=== PATIENT | male | born 1980 | race Caucasian/White ===

== ENCOUNTER 2016-11-04 15:56 | Emergency (ER) | payer OTHER ==
[~2016-11-04] VITALS: Ht 175.3 cm; Wt 66.0 kg
[~2016-11-04 15:56] MED LIST: Chlordiazepoxide Hcl PO; FLUO20CA33 PO; QUET300T2 PO; TRAZ-132 PO
[2016-11-04] MEDS ORDERED: ONDANSETRON HCL 4MG/2ML VIAL IV STA (17:08)
[2016-11-04] MEDS ORDERED: SODIUM CHLORIDE 0.9% 1,000 ML IV ONE (17:08)
[2016-11-04] MEDS ORDERED: MORPHINE SULFATE 4 MG/ML CPJ (NOT FOR IM USE) IV STA (17:08)
[2016-11-04] MEDS ORDERED: FAMOTIDINE 20MG/2ML VIAL IV STA (17:08)
[2016-11-04 17:31] LABS: BASOPHILS % 0.3 % (0.0-2.0); DIFFERENTIAL COMMENT 0; EOSINOPHILS % 0.4 % (0.0-5.0); HEMATOCRIT. 33.9 % (42.0-52.0); HEMOGLOBIN. 11.5 g/dL (14.0-18.0); MEAN CORPUSCULAR HEMOGLOBIN 34.1 pg (28.0-32.0); MEAN CORPUSCULAR HGB CONC 33.9 g/dL (31.0-37.0); MEAN CORPUSCULAR VOLUME 100.4 fL (80.0-94.0); MEAN PLATELET VOLUME 6.3 fl (7.4-10.4); MONOCYTES % 10.9 % (2.0-8.0); NEUTROPHILS % 75.4 % (40.0-76.0); PLATELET 221 x1000/uL (130-400); RED BLOOD CELL COUNT 3.38 mill/uL (4.7-6.1); RED CELL DISTRIBUTION WIDTH 14.9 % (11.6-14.6); WHITE BLOOD COUNT 6.7 x1000/uL (4.5-11.0)
[2016-11-04 17:37] LABS: CHLORIDE 93 mEq/L (98-107); PROTHROMBIN TIME 10.7 sec
[2016-11-04 17:39] LABS: INDEX HEMOLYSI 1 (1-3); INDEX ICTERIC 1 (1-4); INDEX LIPEMIC 1 (1-3)
[2016-11-04 17:43] LABS: ALANINE AMINOTRANSFERASE 115 IU/L (13-61); ALBUMIN 3.8 g/dL (3.4-5.0); ANION GAP 13; CARBON DIOXIDE 33 mEq/L (21-32); LIPASE 329 IU/L (73-393); UREA NITROGEN BLOOD 13 mg/dL (7-21); eGFR > 60 mL/min (>60)
[2016-11-04 17:44] LABS: ETHANOL BLOOD < 10 mg/dL
[2016-11-04 17:48] LABS: NT PRO B-TYPE NATRIURETIC PEP 13 pg/mL (5-125); TROPONIN I < 0.02 ng/mL (0.00-0.04)
[2016-11-04] MEDS ORDERED: POTASSIUM CHLORIDE 40MEQ/30ML UDC PO ONE (19:30)
[2016-11-04] MEDS ORDERED: MAGNESIUM/ALUMINUM HYDROXIDE/SIMETHICONE 30ML UDC PO ONE (19:30)
[2016-11-04 19:42] VITALS: BP 127/76
[2016-11-04] MEDS ORDERED: ONDANSETRON HCL 4MG/2ML VIAL IV ONE (19:45)
[2016-11-04] MEDS ORDERED: KETOROLAC 30MG/ML VIAL IV ONE (19:45)
[2016-11-04] MEDS ORDERED: MORPHINE SULFATE 4 MG/ML CPJ (NOT FOR IM USE) IV ONE (19:45)
[2016-11-04] MEDS ORDERED: POTASSIUM CHLORIDE 20MEQ TABLET SR PO NR (20:00)
== END 2016-11-04 20:18 | disposition home or self-care (01) ==
LOC: ER 16:35
DX: K29.70 Gastritis, unspecified, without bleeding (principal); S42.301A Unspecified fracture of shaft of humerus, right arm, initial encounter for closed fracture; R11.2 Nausea with vomiting, unspecified; F41.9 Anxiety disorder, unspecified; F32.9 Major depressive disorder, single episode, unspecified; F12.10 Cannabis abuse, uncomplicated; F17.200 Nicotine dependence, unspecified, uncomplicated; Z79.899 Other long term (current) drug therapy; X58.XXXA Exposure to other specified factors, initial encounter; Y93.89 Activity, other specified; Y99.8 Other external cause status; Y92.89 Other specified places as the place of occurrence of the external cause
CPT/HCPCS: 36415; 71010; 74176; 80053; 83605; 83690; 83880; 84484; 85025; 85610; 93005; 96361; 96374; 96375; 96376; 99285; G0482; J1885; J2270; J2405; J3490; A4565; J7030

== ENCOUNTER 2016-11-08 17:08 | Emergency (ER) | payer MEDICAID, OTHER ==
[~2016-11-08] VITALS: Ht 175.3 cm; Wt 63.5 kg
[2016-11-08 17:31] VITALS: BP 118/72
== END 2016-11-08 19:30 | disposition left against medical advice (07) ==
LOC: ER 18:51
DX: Z53.21 Procedure and treatment not carried out due to patient leaving prior to being seen by health care provider (principal)

== ENCOUNTER 2016-12-29 08:32 | Emergency (ER) | payer MEDICAID ==
[~2016-12-29] VITALS: Ht 175.3 cm; Wt 70.0 kg
[2016-12-29 09:42] VITALS: BP 136/82
== END 2016-12-29 17:37 | disposition left against medical advice (07) ==
LOC: ER 09:45
DX: Z53.21 Procedure and treatment not carried out due to patient leaving prior to being seen by health care provider (principal)

== ENCOUNTER 2017-01-01 16:36 | Emergency (ER) | payer MEDICAID ==
[~2017-01-01] VITALS: Ht 175.3 cm; Wt 80.0 kg
[2017-01-01 16:40] VITALS: BP 132/78
== END 2017-01-01 18:25 | disposition left against medical advice (07) ==
LOC: ER 16:38
DX: M79.641 Pain in right hand (principal); Z53.21 Procedure and treatment not carried out due to patient leaving prior to being seen by health care provider

== ENCOUNTER 2017-03-05 06:24 | Emergency (ER) | payer MEDICAID ==
[~2017-03-05] VITALS: Ht 175.3 cm; Wt 70.0 kg
[2017-03-05 07:35] LABS: CARBON DIOXIDE 31 mEq/L (21-32); CHLORIDE 111 mEq/L (98-107); ETHANOL BLOOD 255 mg/dL
[2017-03-05 07:38] LABS: BASOPHILS % 0.3 % (0.0-2.0); EOSINOPHILS % 0.4 % (0.0-5.0); LYMPHOCYTES % 26.1 % (20.0-50.0); MEAN CORPUSCULAR HEMOGLOBIN 33.1 pg (28.0-32.0); MEAN CORPUSCULAR VOLUME 96.3 fL (80.0-94.0); MEAN PLATELET VOLUME 6.6 fl (7.4-10.4); MONOCYTES % 6.9 % (2.0-8.0); NEUTROPHILS % 66.3 % (40.0-76.0); PLATELET 265 x1000/uL (130-400); RED BLOOD CELL COUNT 3.64 mill/uL (4.7-6.1); RED CELL DISTRIBUTION WIDTH 14.4 % (11.6-14.6)
[2017-03-05 10:32] LABS: CLARITY URINE CLEAR (CLEAR); COLOR URINE YELLOW (YELLOW); GLUCOSE URINE NEGATIVE (NEGATIVE); KETONES URINE NEGATIVE (NEGATIVE); LEUKOCYTE ESTERASE URINE NEGATIVE (NEGATIVE); NITRITE URINE NEGATIVE (NEGATIVE); OCCULT BLOOD URINE NEGATIVE (NEGATIVE); PH URINE 6.5 (4.5-8.0); PROTEIN URINE NEGATIVE (NEGATIVE); SPECIFIC GRAVITY URINE 1.016 (1.005-1.030)
[2017-03-05 11:00] LABS: *AMPHETAMINES SCREEN URINE NEGATIVE (NEGATIVE); *BARBITURATES SCREEN URINE NEGATIVE (NEGATIVE); *BENZODIAZEPINES SCREEN URINE PRESUMTIVE POSITIVE (NEGATIVE); *COCAINE SCREEN URINE NEGATIVE (NEGATIVE); CANNABINOID URINE SCREEN PRESUMTIVE POSITIVE (NEGATIVE); METHADONE URINE SCREEN NEGATIVE (NEGATIVE); OPIATES URINE SCREEN NEGATIVE (NEGATIVE); PHENCYCLIDINE URINE SCREEN NEGATIVE (NEGATIVE)
[2017-03-05] MEDS ORDERED: LORAZEPAM 2MG/ML CPJ IV ONE (15:15)
[2017-03-06 08:10] VITALS: BP 111/76
== END 2017-03-06 08:24 ==
LOC: ER 06:24
DX: R45.851 Suicidal ideations (principal); R44.1 Visual hallucinations; R44.0 Auditory hallucinations; F20.9 Schizophrenia, unspecified; F17.200 Nicotine dependence, unspecified, uncomplicated; F12.10 Cannabis abuse, uncomplicated; F42.9 Obsessive-compulsive disorder, unspecified; F41.9 Anxiety disorder, unspecified; F31.9 Bipolar disorder, unspecified
CPT/HCPCS: 36415; 80048; 80305; 81003; 85025; 96374; 99285; G0482; J2060

== ENCOUNTER 2017-05-07 04:24 | Emergency (ER) | payer MEDICAID, OTHER ==
[~2017-05-07] VITALS: Ht 175.3 cm; Wt 73.0 kg
[2017-05-07] MEDS ORDERED: ACETAMINOPHEN 325MG TABLET PO ONE (06:30)
[2017-05-07] MEDS ORDERED: SODIUM CHLORIDE 0.9% 1,000 ML IV ONE ×2 (06:30→08:30)
[2017-05-07 07:05] LABS: CLARITY URINE CLEAR (CLEAR); COLOR URINE YELLOW (YELLOW); GLUCOSE URINE NEGATIVE (NEGATIVE); KETONES URINE NEGATIVE (NEGATIVE); LEUKOCYTE ESTERASE URINE NEGATIVE (NEGATIVE); NITRITE URINE NEGATIVE (NEGATIVE); OCCULT BLOOD URINE NEGATIVE (NEGATIVE); PROTEIN URINE NEGATIVE (NEGATIVE); SPECIFIC GRAVITY URINE 1.022 (1.005-1.030); UROBILINOGEN URINE 0.2 E.U./dL (0.2-1.0)
[2017-05-07 07:08] LABS: CARBON DIOXIDE 28 mEq/L (21-32); CHLORIDE 108 mEq/L (98-107)
[2017-05-07 07:12] LABS: BASOPHILS % 0.5 % (0.0-2.0); EOSINOPHILS % 0.6 % (0.0-5.0); HEMATOCRIT. 36.4 % (42.0-52.0); HEMOGLOBIN. 12.2 g/dL (14.0-18.0); MEAN CORPUSCULAR HEMOGLOBIN 32.3 pg (28.0-32.0); MEAN CORPUSCULAR VOLUME 96.4 fL (80.0-94.0); MEAN PLATELET VOLUME 6.4 fl (7.4-10.4); MONOCYTES % 6.6 % (2.0-8.0); NEUTROPHILS % 73.3 % (40.0-76.0); PLATELET 301 x1000/uL (130-400); RED BLOOD CELL COUNT 3.78 mill/uL (4.7-6.1); RED CELL DISTRIBUTION WIDTH 13.9 % (11.6-14.6)
[2017-05-07 07:19] LABS: *AMPHETAMINES SCREEN URINE PRESUMTIVE POSITIVE (NEGATIVE); *BARBITURATES SCREEN URINE NEGATIVE (NEGATIVE); *BENZODIAZEPINES SCREEN URINE NEGATIVE (NEGATIVE); *COCAINE SCREEN URINE NEGATIVE (NEGATIVE); CANNABINOID URINE SCREEN PRESUMTIVE POSITIVE (NEGATIVE); METHADONE URINE SCREEN NEGATIVE (NEGATIVE); OPIATES URINE SCREEN NEGATIVE (NEGATIVE); PHENCYCLIDINE URINE SCREEN NEGATIVE (NEGATIVE)
[2017-05-07] MEDS ORDERED: IBUPROFEN 800MG TABLET PO ONE (08:15)
[2017-05-07 08:49] VITALS: BP 110/73
== END 2017-05-07 09:05 | disposition left against medical advice (07) ==
LOC: ER 04:24
DX: M79.602 Pain in left arm (principal); F19.10 Other psychoactive substance abuse, uncomplicated; R00.0 Tachycardia, unspecified; R10.32 Left lower quadrant pain; F17.200 Nicotine dependence, unspecified, uncomplicated; F12.10 Cannabis abuse, uncomplicated
CPT/HCPCS: 36415; 73060; 74176; 80048; 80305; 81003; 85025; 96360; 96361; 99285; J7030; Z7610

== ENCOUNTER 2017-05-07 14:13 | Inpatient (IN) | payer MEDICAID ==
[~2017-05-07] VITALS: Ht 175.3 cm; Wt 76.9 kg
[2017-05-07] MEDS ORDERED: DEXTROSE 5% IV ONE ×2 (15:08→15:15)
[2017-05-07] MEDS ORDERED: WATER IV ONE ×2 (15:08→15:15)
[2017-05-07] MEDS ORDERED: THIAMINE HCL IV ONE ×2 (15:08→15:15)
[2017-05-07 15:23] LABS: BASOPHILS % 0.8 % (0.0-2.0); EOSINOPHILS % 0.3 % (0.0-5.0); HEMATOCRIT. 39.4 % (42.0-52.0); HEMOGLOBIN. 13.2 g/dL (14.0-18.0); LYMPHOCYTES % 22.8 % (20.0-50.0); MEAN CORPUSCULAR HEMOGLOBIN 32.6 pg (28.0-32.0); MEAN CORPUSCULAR VOLUME 97.8 fL (80.0-94.0); MEAN PLATELET VOLUME 6.2 fl (7.4-10.4); MONOCYTES % 5.1 % (2.0-8.0); PLATELET 308 x1000/uL (130-400); RED BLOOD CELL COUNT 4.03 mill/uL (4.7-6.1); RED CELL DISTRIBUTION WIDTH 13.8 % (11.6-14.6)
[2017-05-07 15:27] LABS: CHLORIDE 112 mEq/L (98-107)
[2017-05-07 15:32] LABS: CARBON DIOXIDE 26 mEq/L (21-32)
[2017-05-07 15:40] LABS: ETHANOL BLOOD 353 mg/dL
[2017-05-07] MEDS ORDERED: SODIUM CHLORIDE 0.9% 100 ML IV ONE (20:45)
[2017-05-07] MEDS ORDERED: LORAZEPAM 2MG/ML CPJ IV ONE ×2 (20:45→21:45)
[2017-05-07] MEDS ORDERED: SODIUM CHLORIDE 0.9% 1,000 ML IV SCH (20:57)
[2017-05-07] MEDS ORDERED: DIPHENHYDRAMINE 50MG/ML VIAL IV PRN (23:15)
[2017-05-07] MEDS ORDERED: MAGNESIUM/ALUMINUM HYDROXIDE/SIMETHICONE 30ML UDC PO PRN (23:15)
[2017-05-07] MEDS ORDERED: MVI, ADULT NO.1 10 ML, FOLIC ACID 1 MG, THIAMINE HCL 100 MG in SODIUM CHLORIDE 0.9% 1,0... IV SCH ×4 (23:15)
[2017-05-07] MEDS ORDERED: ONDANSETRON HCL 4MG/2ML VIAL IV PRN (23:15)
[2017-05-07] MEDS ORDERED: LORAZEPAM 2MG/ML CPJ IV PRN (23:15)
[2017-05-07] MEDS ORDERED: DEXT 5%/0.2% NACL KCL 20MEQ/L 1,000 ML IV SCH (23:15)
[2017-05-08] VITALS (14 sets, daily range): BP systolic 94–130; BP diastolic 58–80
[2017-05-08 00:38] LABS: CLARITY URINE CLEAR (CLEAR); COLOR URINE YELLOW (YELLOW); GLUCOSE URINE 3+ (NEGATIVE); KETONES URINE NEGATIVE (NEGATIVE); LEUKOCYTE ESTERASE URINE NEGATIVE (NEGATIVE); NITRITE URINE NEGATIVE (NEGATIVE); OCCULT BLOOD URINE 2+ (NEGATIVE); PH URINE 5.5 (4.5-8.0); PROTEIN URINE NEGATIVE (NEGATIVE); SPECIFIC GRAVITY URINE 1.016 (1.005-1.030); UROBILINOGEN URINE 0.2 E.U./dL (0.2-1.0)
[2017-05-08 00:56] LABS: *AMPHETAMINES SCREEN URINE PRESUMTIVE POSITIVE (NEGATIVE); *BARBITURATES SCREEN URINE NEGATIVE (NEGATIVE); *BENZODIAZEPINES SCREEN URINE NEGATIVE (NEGATIVE); *COCAINE SCREEN URINE NEGATIVE (NEGATIVE); CANNABINOID URINE SCREEN NEGATIVE (NEGATIVE); METHADONE URINE SCREEN NEGATIVE (NEGATIVE); OPIATES URINE SCREEN NEGATIVE (NEGATIVE); PHENCYCLIDINE URINE SCREEN NEGATIVE (NEGATIVE)
[2017-05-08] MEDS ORDERED: ACETAMINOPHEN 650MG/20.3ML UDC PO PRN (03:30)
[2017-05-08] MEDS ORDERED: MVI, ADULT NO.1 10 ML, FOLIC ACID 1 MG, THIAMINE HCL 100 MG in SODIUM CHLORIDE 0.9% 1,0... IV NR ×4 (04:00)
[2017-05-08] MEDS: LORAZEPAM 2MG/ML CPJ IV PRN ×4 (04:30→21:54)
[2017-05-08] MEDS: CHLORDIAZEPOXIDE 25MG CAPSULE PO SCH ×3 (05:02→21:38)
[2017-05-08] MEDS: GABAPENTIN 300MG CAPSULE PO SCH ×3 (05:02→21:39)
[2017-05-08] MEDS ORDERED: KCL 20 MEQ IV SCH ×3 (12:00)
[2017-05-08] MEDS ORDERED: DEXT 5%/0.2% NACL KCL 20MEQ/L 1,000 ML IV SCH (12:00)
[2017-05-08] MEDS ORDERED: DEXTROSE 5% IV SCH ×3 (12:00)
[2017-05-08] MEDS ORDERED: WATER IV SCH ×3 (12:00)
[2017-05-08] MEDS ORDERED: [UNRECOGNIZED DRUG - OTHER] IV SCH ×3 (12:00)
[2017-05-08] MEDS ORDERED: ACETAMINOPHEN 325MG TABLET PO PRN (15:15)
[2017-05-08] MEDS: POTASSIUM CHLORIDE INJ 20 MEQ in DEXT 5%/0.2% NACL 1,000 ML IV SCH ×2 (15:35→17:40)
[2017-05-08] MEDS ORDERED: DIPHENHYDRAMINE 50MG/ML VIAL IV PRN (21:00)
[2017-05-08] MEDS: QUETIAPINE FUMARATE 100MG TABLET PO SCH (21:38)
[2017-05-08] MEDS: TRAZODONE HCL 100MG TABLET PO SCH (21:39)
[2017-05-09] VITALS: BP 105/66
[2017-05-09 04:00] VITALS: BP 90/56
[2017-05-09] MEDS: CHLORDIAZEPOXIDE 25MG CAPSULE PO SCH ×3 (05:29→21:03)
[2017-05-09] MEDS: GABAPENTIN 300MG CAPSULE PO SCH ×3 (05:29→21:03)
[2017-05-09 06:35] LABS: BASOPHILS % 0.4 % (0.0-2.0); HEMATOCRIT. 33.6 % (42.0-52.0); HEMOGLOBIN. 11.5 g/dL (14.0-18.0); LYMPHOCYTES % 37.2 % (20.0-50.0); MEAN CORPUSCULAR VOLUME 96.6 fL (80.0-94.0); MEAN PLATELET VOLUME 6.6 fl (7.4-10.4); MONOCYTES % 9.7 % (2.0-8.0); NEUTROPHILS % 50.7 % (40.0-76.0); PLATELET 282 x1000/uL (130-400); RED BLOOD CELL COUNT 3.48 mill/uL (4.7-6.1); RED CELL DISTRIBUTION WIDTH 13.6 % (11.6-14.6)
[2017-05-09 08:06] LABS: CARBON DIOXIDE 28 mEq/L (21-32); CHLORIDE 106 mEq/L (98-107)
[2017-05-09 09:02] VITALS: BP 90/54
[2017-05-09] MEDS: QUETIAPINE FUMARATE 100MG TABLET PO SCH (09:32)
[2017-05-09] MEDS: THIAMINE HCL 100MG TABLET PO SCH (09:33)
[2017-05-09 12:00] VITALS: BP 98/47
[2017-05-09] MEDS: POTASSIUM CHLORIDE INJ 20 MEQ in DEXT 5%/0.2% NACL 1,000 ML IV SCH ×2 (16:04→22:31)
[2017-05-09] MEDS: LORAZEPAM 2MG/ML CPJ IV PRN (16:04)
[2017-05-09 20:00] VITALS: BP 92/54
[2017-05-09] MEDS: TRAZODONE HCL 100MG TABLET PO SCH (20:55)
[2017-05-10] VITALS: BP 90/53
[2017-05-10 04:00] VITALS: BP 94/56
[2017-05-10] MEDS: CHLORDIAZEPOXIDE 25MG CAPSULE PO SCH ×2 (05:42→13:57)
[2017-05-10] MEDS: GABAPENTIN 300MG CAPSULE PO SCH ×2 (05:42→13:57)
[2017-05-10] MEDS: QUETIAPINE FUMARATE 100MG TABLET PO SCH (09:33)
[2017-05-10] MEDS: THIAMINE HCL 100MG TABLET PO SCH (09:33)
[2017-05-10 15:54] VITALS: BP 112/85
== END 2017-05-10 16:15 | disposition home or self-care (01) | DRG 775 ==
LOC: ER 14:35 → 5EST 21:00 → ENRESERV 23:13 → ER 05-08 00:26 → 6WST 05-08 22:30
PROVIDERS: ADMIT Internal Medicine; ATTEND Internal Medicine
DX: F10.239 Alcohol dependence with withdrawal, unspecified (principal); G92 Toxic encephalopathy; E87.0 Hyperosmolality and hypernatremia; E87.8 Other disorders of electrolyte and fluid balance, not elsewhere classified; G40.909 Epilepsy, unspecified, not intractable, without status epilepticus; Z60.2 Problems related to living alone; Z79.899 Other long term (current) drug therapy; E83.51 Hypocalcemia
CPT/HCPCS: 36415; 70450; 80048; 80053; 80305; 81001; 83735; 85025; 93970; 96361; 96365; 96366; 96375; 96376; 97162; 99285; A6261; G0482; J1200; J2060; J3411; J3480; J3490; J7030; J7050; J7070; J7131

== ENCOUNTER 2017-05-10 21:13 | Emergency (ER) | payer MEDICAID ==
[~2017-05-10] VITALS: Ht 167.6 cm; Wt 68.0 kg
[2017-05-11] MEDS ORDERED: BACITRACIN ZINC OINT UDPKT TOP ONE (02:30)
[2017-05-11] MEDS ORDERED: TETANUS, DIPHTHERIA, PERTUSSIS VAC/PF 0.5ML (>7YR OLD) IM ONE (02:30)
[2017-05-11] MEDS ORDERED: KETOROLAC 60MG/2ML VIAL IM ONE (04:15)
[2017-05-11 06:02] LABS: BASOPHILS % 0.2 % (0.0-2.0); EOSINOPHILS % 1.5 % (0.0-5.0); HEMATOCRIT. 32.5 % (42.0-52.0); MEAN CORPUSCULAR HEMOGLOBIN 32.5 pg (28.0-32.0); MEAN CORPUSCULAR VOLUME 96.1 fL (80.0-94.0); MEAN PLATELET VOLUME 6.5 fl (7.4-10.4); MONOCYTES % 14.7 % (2.0-8.0); NEUTROPHILS % 65.6 % (40.0-76.0); PLATELET 276 x1000/uL (130-400); RED BLOOD CELL COUNT 3.39 mill/uL (4.7-6.1); RED CELL DISTRIBUTION WIDTH 13.6 % (11.6-14.6)
[2017-05-11 06:12] LABS: CARBON DIOXIDE 30 mEq/L (21-32); CHLORIDE 104 mEq/L (98-107); ETHANOL BLOOD < 10 mg/dL
[2017-05-11 07:43] LABS: CLARITY URINE CLEAR (CLEAR); COLOR URINE YELLOW (YELLOW); GLUCOSE URINE NEGATIVE (NEGATIVE); KETONES URINE TRACE (NEGATIVE); LEUKOCYTE ESTERASE URINE NEGATIVE (NEGATIVE); NITRITE URINE NEGATIVE (NEGATIVE); OCCULT BLOOD URINE NEGATIVE (NEGATIVE); PROTEIN URINE TRACE (NEGATIVE); SPECIFIC GRAVITY URINE 1.028 (1.005-1.030)
[2017-05-11 07:53] LABS: *AMPHETAMINES SCREEN URINE NEGATIVE (NEGATIVE); *BARBITURATES SCREEN URINE NEGATIVE (NEGATIVE); *BENZODIAZEPINES SCREEN URINE PRESUMTIVE POSITIVE (NEGATIVE); *COCAINE SCREEN URINE NEGATIVE (NEGATIVE); CANNABINOID URINE SCREEN PRESUMTIVE POSITIVE (NEGATIVE); METHADONE URINE SCREEN NEGATIVE (NEGATIVE); OPIATES URINE SCREEN NEGATIVE (NEGATIVE); PHENCYCLIDINE URINE SCREEN NEGATIVE (NEGATIVE)
[2017-05-11 11:30] VITALS: BP 129/77
== END 2017-05-11 12:05 | disposition home or self-care (01) ==
LOC: ER 21:13
DX: S01.81XA Laceration without foreign body of other part of head, initial encounter (principal); R07.81 Pleurodynia; R45.851 Suicidal ideations; F10.10 Alcohol abuse, uncomplicated; F14.10 Cocaine abuse, uncomplicated; F12.10 Cannabis abuse, uncomplicated; Y90.0 Blood alcohol level of less than 20 mg/100 ml; Y04.1XXA Assault by human bite, initial encounter; Y93.89 Activity, other specified; Y92.481 Parking lot as the place of occurrence of the external cause
CPT/HCPCS: 36415; 70450; 71010; 80053; 80305; 80307; 80329; 81001; 85025; 96372; 99285; G0482; J1885; Z7610

== ENCOUNTER 2017-11-15 19:49 | Emergency (ER) | payer MEDICAID, OTHER ==
[~2017-11-15] VITALS: Ht 167.6 cm; Wt 69.0 kg
[2017-11-15] MEDS ORDERED: CEPHALEXIN 500MG CAPSULE PO ONE (23:30)
[2017-11-15] MEDS ORDERED: TETANUS, DIPHTHERIA, PERTUSSIS VAC/PF 0.5ML (>7YR OLD) IM ONE (23:30)
[2017-11-15 23:48] LABS: BASOPHILS % 0.3 % (0.0-2.0); EOSINOPHILS % 0.2 % (0.0-5.0); HEMATOCRIT. 34.2 % (42.0-52.0); HEMOGLOBIN. 11.6 g/dL (14.0-18.0); LYMPHOCYTES % 18.4 % (20.0-50.0); MEAN CORPUSCULAR HEMOGLOBIN 33.2 pg (28.0-32.0); MEAN CORPUSCULAR VOLUME 97.8 fL (80.0-94.0); MEAN PLATELET VOLUME 6.4 fl (7.4-10.4); MONOCYTES % 7.5 % (2.0-8.0); NEUTROPHILS % 73.6 % (40.0-76.0); PLATELET 267 x1000/uL (130-400); RED CELL DISTRIBUTION WIDTH 14.9 % (11.6-14.6)
[2017-11-15 23:54] LABS: CHLORIDE 115 mEq/L (98-107)
[2017-11-15 23:58] LABS: ETHANOL BLOOD 215 mg/dL
[2017-11-16] MEDS ORDERED: TETANUS, DIPHTHERIA, PERTUSSIS VAC/PF 0.5ML (>7YR OLD) IM ONE (00:45)
[2017-11-16] MEDS ORDERED: LIDOCAINE HCL/EPINEPHRINE 1%-EPI 1:100,000 20 ML VIAL INFIL ONE (00:45)
[2017-11-16 04:30] VITALS: BP 103/73
== END 2017-11-16 04:50 | disposition home or self-care (01) ==
LOC: ER 20:20
DX: S71.112A Laceration without foreign body, left thigh, initial encounter (principal); X58.XXXA Exposure to other specified factors, initial encounter; F10.229 Alcohol dependence with intoxication, unspecified; Y90.7 Blood alcohol level of 200-239 mg/100 ml; F17.200 Nicotine dependence, unspecified, uncomplicated; Z23 Encounter for immunization
CPT/HCPCS: 12001; 36415; 80053; 85025; 90471; 90715; 99284; A4217; G0482; J3490; Z7610

== ENCOUNTER 2018-04-08 10:35 | Emergency (ER) | payer OTHER ==
[~2018-04-08] VITALS: Ht 175.3 cm; Wt 73.0 kg
[~2018-04-08 10:35] MED LIST changes: -TRAZ-132 PO; +TRAZ-213 PO
[2018-04-08 12:23] LABS: BASOPHILS % 0.2 % (0.0-2.0); EOSINOPHILS % 0.1 % (0.0-5.0); HEMATOCRIT. 36.7 % (42.0-52.0); HEMOGLOBIN. 12.5 g/dL (14.0-18.0); LYMPHOCYTES % 13.9 % (20.0-50.0); MEAN CORPUSCULAR HEMOGLOBIN 32.1 pg (28.0-32.0); MEAN CORPUSCULAR VOLUME 93.9 fL (80.0-94.0); MEAN PLATELET VOLUME 6.4 fl (7.4-10.4); MONOCYTES % 9.9 % (2.0-8.0); NEUTROPHILS % 75.9 % (40.0-76.0); PLATELET 384 x1000/uL (130-400); RED BLOOD CELL COUNT 3.91 mill/uL (4.7-6.1); RED CELL DISTRIBUTION WIDTH 14.8 % (11.6-14.6)
[2018-04-08 12:26] LABS: CHLORIDE 99 mEq/L (98-107)
[2018-04-08 12:32] LABS: ETHANOL BLOOD 130 mg/dL
[2018-04-08 13:07] LABS: CLARITY URINE CLEAR (CLEAR); COLOR URINE YELLOW (YELLOW); KETONES URINE 1+ (NEGATIVE); LEUKOCYTE ESTERASE URINE NEGATIVE (NEGATIVE); NITRITE URINE NEGATIVE (NEGATIVE); OCCULT BLOOD URINE TRACE (NEGATIVE); PROTEIN URINE NEGATIVE (NEGATIVE); SPECIFIC GRAVITY URINE 1.013 (1.005-1.030); UROBILINOGEN URINE 0.2 E.U./dL (0.2-1.0)
[2018-04-08 13:24] LABS: *AMPHETAMINES SCREEN URINE NEGATIVE (NEGATIVE); *BARBITURATES SCREEN URINE NEGATIVE (NEGATIVE); *BENZODIAZEPINES SCREEN URINE PRESUMTIVE POSITIVE (NEGATIVE); *COCAINE SCREEN URINE NEGATIVE (NEGATIVE); METHADONE URINE SCREEN NEGATIVE (NEGATIVE)
[2018-04-08 13:25] LABS: CANNABINOID URINE SCREEN PRESUMTIVE POSITIVE (NEGATIVE); OPIATES URINE SCREEN NEGATIVE (NEGATIVE); PHENCYCLIDINE URINE SCREEN NEGATIVE (NEGATIVE)
[2018-04-08] MEDS ORDERED: OLANZAPINE 10 MG/VIAL IM ONE (14:15)
[2018-04-08] MEDS ORDERED: LORAZEPAM 2MG/ML CPJ IV ONE (14:15)
[2018-04-08] MEDS ORDERED: SODIUM CHLORIDE 0.9% 1,000 ML IV NR (18:08)
[2018-04-08] MEDS ORDERED: LORAZEPAM 1MG TABLET PO ONE (21:30)
[2018-04-09] MEDS ORDERED: LORAZEPAM 2MG/ML CPJ IV ONE (11:00)
[2018-04-09 13:00] VITALS: BP 124/84
== END 2018-04-09 13:11 | disposition home or self-care (01) ==
LOC: ER 10:45
DX: R44.0 Auditory hallucinations (principal); R45.851 Suicidal ideations; M79.601 Pain in right arm; F41.9 Anxiety disorder, unspecified; F20.9 Schizophrenia, unspecified; F32.9 Major depressive disorder, single episode, unspecified
CPT/HCPCS: 36415; 73060; 80053; 80305; 80307; 80329; 81003; 82962; 85025; 96372; 96374; 96376; 99285; G0482; J2060; J3490; Z7610

== ENCOUNTER 2018-04-10 00:03 | Emergency (ER) | payer OTHER ==
[~2018-04-10] VITALS: Ht 175.3 cm; Wt 73.0 kg
[2018-04-10 01:44] LABS: BASOPHILS % 0.3 % (0.0-2.0); EOSINOPHILS % 0.2 % (0.0-5.0); HEMATOCRIT. 38.1 % (42.0-52.0); HEMOGLOBIN. 12.8 g/dL (14.0-18.0); LYMPHOCYTES % 25.8 % (20.0-50.0); MEAN CORPUSCULAR VOLUME 95.1 fL (80.0-94.0); NEUTROPHILS % 61.7 % (40.0-76.0); PLATELET 414 x1000/uL (130-400); RED BLOOD CELL COUNT 4.01 mill/uL (4.7-6.1); RED CELL DISTRIBUTION WIDTH 15.3 % (11.6-14.6)
[2018-04-10 01:51] LABS: CHLORIDE 107 mEq/L (98-107)
[2018-04-10 01:57] LABS: ETHANOL BLOOD 228 mg/dL
[2018-04-10 02:13] LABS: *AMPHETAMINES SCREEN URINE NEGATIVE (NEGATIVE); *BARBITURATES SCREEN URINE NEGATIVE (NEGATIVE); *BENZODIAZEPINES SCREEN URINE PRESUMTIVE POSITIVE (NEGATIVE); *COCAINE SCREEN URINE NEGATIVE (NEGATIVE); METHADONE URINE SCREEN NEGATIVE (NEGATIVE); OPIATES URINE SCREEN NEGATIVE (NEGATIVE)
[2018-04-10 02:14] LABS: CANNABINOID URINE SCREEN PRESUMTIVE POSITIVE (NEGATIVE); PHENCYCLIDINE URINE SCREEN NEGATIVE (NEGATIVE)
[2018-04-10] MEDS ORDERED: LORAZEPAM 1MG TABLET PO ONE (09:00)
[2018-04-10 13:14] VITALS: BP 100/52
== END 2018-04-10 13:16 | disposition home or self-care (01) ==
LOC: ER 01:46
DX: R45.851 Suicidal ideations (principal); F31.9 Bipolar disorder, unspecified; F41.9 Anxiety disorder, unspecified; F10.20 Alcohol dependence, uncomplicated; F17.200 Nicotine dependence, unspecified, uncomplicated; F12.10 Cannabis abuse, uncomplicated
CPT/HCPCS: 36415; 80053; 80305; 80307; 80329; 85025; 93005; 99285; G0482; Z7610